=== PATIENT | female | born 1955 | race Native Hawaiian/Other Pacific Islander ===

== ENCOUNTER 2017-04-18 21:48 | Outpatient (CLI) | payer BC | END 2017-04-18 22:50 | disposition home or self-care (01) | LOC: LABW 21:48 | DX: A09 Infectious gastroenteritis and colitis, unspecified (principal) | CPT/HCPCS: 82272; 87015; 87045; 87324; 87328; 87329; 87449; 87899 ==

== ENCOUNTER 2017-05-04 09:29 | Outpatient (CLI) | payer BC | END 2017-05-04 20:00 | disposition home or self-care (01) | LOC: MAMMO 09:29 | DX: Z12.31 Encounter for screening mammogram for malignant neoplasm of breast (principal) | CPT/HCPCS: G0202-TC ==